=== PATIENT | female | born 1985 | race Caucasian/White ===

== ENCOUNTER 2023-11-18 21:19 | Emergency (ER) | payer OTHER, SELFPAY ==
[2023-11-18 21:25] VITALS: BP 130/61; PULSE 73; RESP 18; TEMP 36.2; O2SAT 100; BMI 26.4
--- NOTE | 2023-11-18 21:29 | DI.RAD.S_ITS ---
PROCEDURE: XR CHEST 1V INDICATIONS: chest pain TECHNIQUE: One view of the chest was acquired. COMPARISON: [facility], , CHEST 2 VIEW, 10/07/2012, 20:07. FINDINGS: Surgical changes and devices: None. Lungs and pleura: Lungs are clear. No pleural effusions or pneumothorax. Mediastinum: Mediastinal contours appear normal. Heart size is normal. Bones and chest wall: No suspicious bony lesions. Overlying soft tissues appear unremarkable. IMPRESSION: No acute cardiopulmonary abnormality is seen. Dictated by: Tatiana Perry M.D. on 11/18/2023 at 22:57 Approved by: Tatiana Perry M.D. on 11/18/2023 at 22:58
[2023-11-18] MEDS: ASPIRIN 81 MG CHEW TAB 324 MG PO (21:35)
[2023-11-18 21:44] LABS: Add Manual Diff / Slide Review NO; Basophils Absolute Auto 100 /uL (0-100); Basophils Percent Auto 0.9 % (0-2); Eosinophils Absolute Auto 100 /uL (0-450); Eosinophils Percent Auto 1.3 % (2-4); Hematocrit 40.1 % (36-46); Hemoglobin 13.9 g/dL (12.0-16.0); Lymphocytes Absolute Auto 4000 /uL (1100-4500); Mean Corpuscular HGB Conc 34.6 % (30-36); Mean Corpuscular Hemoglobin 30.1 PG (26-34); Mean Corpuscular Volume 87.2 fL (80-100); Monocytes Absolute Auto 700 /uL (0-900); Monocytes Percent Auto 8.2 % (3-14); Neutrophils Absolute Auto 3300 /uL (1500-7000); Neutrophils Percent Auto 40.6 % (50-75); Platelet Count 297 X10^3/uL (150-400); Red Cell Distribution Width 12.8 % (11.6-14.8); White Blood Cell Count 8.2 X10^3/uL (4.5-11.0)
[2023-11-18 21:51] LABS: Prothrombin Time 11.8 SECONDS (9.4-12.5)
[2023-11-18 21:54] LABS: Alanine Aminotransferase 42 IU/L (<35); Albumin 4.4 g/dL (3.5-5.0); Albumin Globulin Ratio 1.4 (1.0-2.8); Alkaline Phosphatase 49 U/L (38-126); Aspartate Aminotransferase 23 IU/L (14-36); BUN Creatinine Ratio 30.4 (6-22); Bilirubin Total 0.6 mg/dL (0.2-1.3); Blood Urea Nitrogen 17 mg/dL (7-17); Calcium 9.4 mg/dL (8.4-10.2); Carbon Dioxide 24 mmol/L (22-32); Chloride 103 mmol/L (98-107); Creatine Kinase 50 U/L (30-135); Estimated Glomerular Filt Rate > 60 mL/min (>60); Globulin 3.2 g/dL (1.7-4.1); Glucose 95 mg/dL (70-100); HEMOLYSIS < 15 (0-50); Lipase 155 U/L (23-300); Magnesium 1.9 mg/dL (1.6-2.3); PTT Partial Thromboplastin Tim 37 SECONDS (25.1-36.5); Potassium 3.9 mmol/L (3.4-5.1); Sodium 138 mmol/L (137-145); Total Protein 7.6 g/dL (6.3-8.2)
[2023-11-18 22:06] LABS: Troponin I < 0.012 ng/mL (0.01-0.034)
--- NOTE | 2023-11-18 23:18 | ED.CHESTPAIN ---
HPI - Chest Pain General Chief Complaint: Chest Pain Stated Complaint: chest pain, arm pain Time Seen by Provider: 11/18/23 21:47 Source: patient Mode of arrival: Ambulatory History of Present Illness HPI narrative: 38-year-old woman with mild anxiety, currently on Ozempic presents with chest pain. She would initially noted some right-sided musculoskeletal type chest pain center anterior right chest wall for the past 2 weeks. At 8:00 a.m. tonight while she was driving she noticed the pain began to radiate across the center of her chest and then up into her jaw down her left arm. She did not become diaphoretic or notice palpitations. No dyspnea with this. She was unable to find a comfortable position with her left arm. These symptoms lasted for approximately 1.5 hours. She has not been having significant nausea, vomiting or diarrhea. Has not had difficulties with pancreatitis or upper GI bleed or reflux in the past. No history of gallbladder disease. She has a nonsmoker, no hypertension, no hyperlipidemia and is unaware of her family history. Related Data Home Medications Medication Instructions Recorded Confirmed clonazepam 0.5 mg tablet 0.5 mg PO PRN ##0 10/07/12 methocarbamol 750 mg tablet 750 mg PO TIDP ##0 10/07/12 (Robaxin-750) Previous Rx's Medication Instructions Recorded ondansetron 4 mg disintegrating 4 mg PO Q8H PRN nausea and 11/19/23 tablet vomiting #20 tabs Allergies Allergy/AdvReac Type Severity Reaction Status Date / Time Penicillins Allergy Anaphylaxis Verified 11/18/23 21:25 Review of Systems Review of Systems Narrative: Pertinent positive and negative findings as per HPI Patient History Surgical History (Updated 02/02/18 @ 05:46 by Conversion Provider) Status post tonsillectomy and adenoidectomy Family History (Updated 12/27/15 @ 00:00 by Conversion Provider) Mother Age: 58 Essential hypertension, hypertension with unspecified goal High cholesterol Social History Smoking Status: Never smoker Smoking Status: Never smoker alcohol intake frequency: holidays/special occasions only Substance Use Type: marijuana Exam Initial Vital Signs Initial Vital Signs: Vital Signs Temperature 97.2 F L 11/18/23 21:25 Pulse Rate 73 11/18/23 21:25 Respiratory Rate 18 11/18/23 21:25 Blood Pressure 130/61 11/18/23 21:25 Pulse Oximetry 100 11/18/23 21:25 Oxygen Delivery Method Room Air 11/18/23 21:25 General: Healthy appearing, in no acute distress. Able to give a complete and coherent history. Well-nourished well-developed HEENT: Moist mucous membranes, normal sclera with reactive pupils, Neck: No JVD, supple Respiratory: Lungs are clear to auscultation, no wheezing no rales no rhonchi. Full and symmetrical air movement Chest: Some minor tenderness musculoskeletal right mid chest and along sternal border. Patient clearly identifies this as tender but very different from the pain for which she presents. There is no reproducible neck pain, shoulder pain or elbow pain Cardiac: Regular rate and rhythm no murmurs no bruits Abdomen: Soft, nontender, good bowel tones, no flank pain Skin: Warm and dry, no rashes Neurologic: Grossly neurologically intact with no obvious asymmetries or abnormalities Extremities: No trauma, well perfused Psych: Cooperative, appropriate insight and affect Course Orders Ordered: ED Orders 11/18/23 21:29 XR chest 1V Stat EKG-12 Lead Stat 11/18/23 21:35 Complete Blood Count AUTO DIFF Stat Comprehensive Metabolic Panel Stat Lipase Stat Magnesium Stat PTT Partial Thromboplastin Nikita Stat Prothrombin Time INR Stat Troponin & CK Cardiac Panel Stat 11/18/23 23:30 Trop I [Troponin I] Stat Discontinued Medications Aspirin (Aspirin 81 Mg Chew Tab) 324 mg PO NOW ONE Stop: 11/18/23 21:30 Last Admin: 11/18/23 21:35 Dose: 324 mg Documented By: MAGDI Ketorolac Tromethamine (Ketorolac 30 Mg/Ml Vial) 15 mg IV NOW ONE Stop: 11/18/23 23:26 Last Admin: 11/18/23 23:44 Dose: 15 mg Documented By: FELTON Ondansetron HCl (Ondansetron 4 Mg/2 Ml Inj) 4 mg IV NOW ONE Stop: 11/19/23 00:35 Last Admin: 11/19/23 00:39 Dose: 4 mg Documented By: YESSENIA Vital Signs Vital signs: Vital Signs - 8 hr 11/18/23 21:25 Temperature 97.2 F L Pulse Rate 73 Respiratory Rate 18 Blood Pressure 130/61 Pulse Oximetry 100 Oxygen Delivery Method Room Air MDM - Chest Pain Lab Data 11/18/23 21:35 11/18/23 21:35 Labs: Lab Results 11/18/23 11/18/23 Range/Units 21:35 23:30 WBC 8.2 (4.5-11.0) X10^3/uL RBC 4.60 (4.0-5.2) X10^6/uL Hgb 13.9 (12.0-16.0) g/dL Hct 40.1 (36-46) % MCV 87.2 (80-100) fL MCH 30.1 (26-34) PG MCHC 34.6 (30-36) % RDW 12.8 (11.6-14.8) % Plt Count 297 (150-400) X10^3/uL Neut % (Auto) 40.6 L (50-75) % Lymph % (Auto) 49.0 H (25-40) % [place] % (Auto) 8.2 (3-14) % Eos % (Auto) 1.3 L (2-4) % Baso % (Auto) 0.9 (0-2) % Neut # (Auto) 3300 (7135-7520) /uL Lymph # (Auto) 4000 (9659-8338) /uL [place] # (Auto) 700 (0-900) /uL Eos # (Auto) 100 (0-450) /uL Baso # (Auto) 100 (0-100) /uL PT 11.8 (9.4-12.5) SECONDS INR 1.0 (0.9-1.3) APTT 37 H (25.1-36.5) SECONDS Sodium 138 (137-145) mmol/L Potassium 3.9 (3.4-5.1) mmol/L Chloride 103 (98-107) mmol/L Carbon Dioxide 24 (22-32) mmol/L BUN 17 (7-17) mg/dL Creatinine 0.56 (0.52-1.04) mg/dL Estimated GFR > 60 (>60) mL/min BUN/Creatinine Ratio 30.4 H (6-22) Glucose 95 (70-100) mg/dL Calcium 9.4 (8.4-10.2) mg/dL Magnesium 1.9 (1.6-2.3) mg/dL Total Bilirubin 0.6 (0.2-1.3) mg/dL AST 23 (14-36) IU/L ALT 42 H (<35) IU/L Alkaline Phosphatase 49 (38-126) U/L Total Creatine Kinase 50 (30-135) U/L Troponin I < 0.012 < 0.012 (0.01-0.034) ng/mL Total Protein 7.6 (6.3-8.2) g/dL Albumin 4.4 (3.5-5.0) g/dL Globulin 3.2 (1.7-4.1) g/dL Albumin/Globulin Ratio 1.4 (1.0-2.8) Lipase 155 (23-300) U/L [facility] Narrative Medical decision making narrative: CC: Chest pain, initially starting with what sounds like musculoskeletal pain on the right side but then at 8:00 p.m. tonight radiating up the neck down her arm and unable to find a comfortable position. Data collected from: patient Social determinants of health that may influence the patients condition: Patient does not know any of her family history. She is a full-time RN for employment Differential considered: Acute coronary syndrome, musculoskeletal pain, costochondritis, pneumothorax, pneumonia Exam documented above, pertinent findings include: Patient does have reproducible chest pain but this is not the deeper left-sided chest pain that went up to her neck and down her left arm. Remainder of exam is benign Lab Test results independently reviewed as above. Pertinent findings: CBC is unremarkable Chemistries are reassuring Initial troponin is undetectable. Repeat troponin at 2:00 a.m. is undetectable Lipase is within normal limits Independently reviewed EKG: EKG shows a rate of 74 sinus rhythm. Normal intervals, normal axis. No acute ischemic changes Imaging studies independently reviewed: Chest x-ray is unremarkable Treatments: aspirin on arrival, Toradol Discussion: Patient presents with right-sided chest pain that has been going on for almost 2 weeks and at 8:00 p.m. tonight radiated across her chest up into her jaw down her arm. That pain has completely resolved. She is having some nausea which she has been having while she has been on Ozempic over the last year. She will sometimes have some dry heaves but has not actually had overt emesis. Does respond nicely to Zofran. Reviewed EKG and repeat troponins with her HEART score is 0. We discussed costochondritis. She will follow up with her primary care physician. I have given her a prescription for Zofran to use for the low-grade chronic nausea. At this time I am seeing no evidence of acute life-threatening injuries, acute coronary syndrome, pneumothorax, significant anemia, she her presentation is not consistent with pulmonary embolism. Questions are answered and she is safe for discharge Discharge Plan Departure Patient Disposition: Home Clinical Impression: Atypical chest pain, Nausea Instructions: DI for Atypical Chest Pain Activity Restrictions/Additional Instructions: Thank you for coming in today I am not seeing any life-threatening abnormalities that would require hospitalization or any workup at this time. Specifically, seeing no evidence of heart attack, acute coronary syndrome, collapsed lung, pneumothorax, pulmonary embolism. You do not have pancreatitis. Some of the pain in the right side of your chest at around the sternum maybe costochondritis however I do not have an explanation for the pain that you notice going up into your shoulder and down your arm today. I do think that a follow up with the regular doctor does make sense. We discussed the nausea that you have had and felt that it was secondary to the Ozempic. If you are having worsening heartburn or chronic reflux that is causing part of the nausea that lower esophageal pain could also explain some of the pain that you are experiencing today If you find that you are getting worse or develop any new symptoms, please feel free to return to the emergency department for further evaluation. Prescriptions: New ondansetron 4 mg tablet,disintegrating 4 mg PO Q8H PRN (Reason: nausea and vomiting) Qty: 20 0RF No Action clonazepam 0.5 MG tablet 0.5 mg PO PRN Qty: 0 methocarbamol [Robaxin-750] 750 MG tablet 750 mg PO TIDP Qty: 0 Stand Alone Forms: Patient Portal/API
[2023-11-18] MEDS: KETOROLAC 30 MG/ML VIAL 15 MG IV (23:44)
[2023-11-19 00:05] LABS: Troponin I < 0.012 ng/mL (0.01-0.034)
[2023-11-19] MEDS: ONDANSETRON 4 MG/2 ML INJ IV (00:39)
[2023-11-19] MEDS: ONDANSETRON 4 MG ODT PREPACK 1 BOTTLE MISC (01:09)
[2023-11-19 01:13] VITALS: BP 108/60; PULSE 78; RESP 16; TEMP 36.9; O2SAT 98
== END 2023-11-19 01:15 | disposition home or self-care (01) ==
PROVIDERS: Emergency Provider Emergency Medicine
DX: R07.89 Other chest pain (principal); R11.0 Nausea
CPT/HCPCS: 36415; 71045; 80053; 82550; 83690; 83735; 84484; 85025; 85610; 85730; 93005; 93010; 96374; 96375; 99284; J1885; J2405